=== PATIENT | male | born 1955 | race Caucasian/White ===

== ENCOUNTER 2023-05-06 21:39 | Emergency (ER) | payer OTHER ==
[~2023-05-06] VITALS: Ht 175.3 cm; Wt 77.1 kg
[2023-05-06 21:43] VITALS: BP 177/98; PULSE 93; RESP 18; TEMP 98; O2SAT 98
[2023-05-06] MEDS ORDERED: KETOROLAC 30 MG/ML VIAL IM ONE (22:40)
[2023-05-06] MEDS ORDERED: HYDROcodone/APAP 5/325 MG 1 TAB TAB PO ONE (22:40)
[2023-05-07] MEDS ORDERED: ACET-10509 PO (00:06)
== END 2023-05-07 00:29 | disposition home or self-care (01) ==
LOC: MED 21:39
DX: S43.085A Other dislocation of left shoulder joint, initial encounter (principal); E11.9 Type 2 diabetes mellitus without complications; I10 Essential (primary) hypertension; Z79.899 Other long term (current) drug therapy; W18.39XA Other fall on same level, initial encounter; Y92.89 Other specified places as the place of occurrence of the external cause; Y93.89 Activity, other specified; Y99.8 Other external cause status
CPT/HCPCS: 23650; 73030; 96372; 99284; J1885; Q0092

== ENCOUNTER 2023-05-07 17:38 | Emergency (ER) | payer OTHER ==
[~2023-05-07] VITALS: Ht 167.6 cm; Wt 59.0 kg
[~2023-05-07 17:38] MED LIST: ACET-10509 PO
[2023-05-07 17:57] VITALS: BP 116/66; PULSE 106; RESP 22; TEMP 97; O2SAT 98
[2023-05-07] MEDS ORDERED: MORPHINE SULFATE 4 MG/ML SYR IVP ONE (18:30)
[2023-05-07] MEDS ORDERED: LORazepam 2 MG/ML VIAL IVP ONE (18:30)
[2023-05-07] MEDS ORDERED: ONDANSETRON 4 MG/2 ML VIAL IVP ONE (18:30)
[2023-05-07] MEDS ORDERED: ONDANSETRON 4 MG/2 ML VIAL ONE (19:33)
[2023-05-07] MEDS ORDERED: MORPHINE SULFATE 4 MG/ML SYR ONE (19:34)
[2023-05-07] MEDS ORDERED: LORazepam 2 MG/ML VIAL ONE (19:35)
[2023-05-07 19:57] VITALS: RESP 25
[2023-05-07 20:14] VITALS: O2SAT 100
[2023-05-07] MEDS ORDERED: LIDOCAINE 2% 1000 MG/50 ML VIAL INJ ONE (21:05)
[2023-05-07 21:26] LABS: BASOPHILS # (AUTO) 0.1 K/uL (0.00-0.22); BASOPHILS % (AUTO) 0.2 % (0.0-2.0); HEMATOCRIT 25.7 % (36-52); HEMOGLOBIN 8.8 g/dL (12.0-18.0); LYMPHOCYTES # (AUTO) 0.7 K/uL (2.0-11.5); LYMPHOCYTES % (AUTO) 2.9 % (20.5-51.1); MEAN CORPUSCULAR HEMOGLOBIN 33 pg (27-31); MEAN CORPUSCULAR HGB CONC 34 g/dL (33-37); MEAN CORPUSCULAR VOLUME 95.1 fL (80-94); MONOCYTES # (AUTO) 0.8 K/uL (0.8-1.0); MONOCYTES % (AUTO) 3.3 % (1.7-9.3); NEUTROPHILS # (AUTO) 21.3 K/uL (1.8-7.7); NEUTROPHILS % (AUTO) 93.6 % (42.2-75.2); PLATELET COUNT (AUTO) 443 K/uL (140-450); WHITE BLOOD COUNT (AUTO) 22.8 K/uL (4.8-10.8)
[2023-05-07 21:34] LABS: CALCIUM 8.6 mg/dL (8.5-10.1); CARBON DIOXIDE 22.1 mmol/L (21-32); CREATININE 1.1 mg/dL (0.6-1.3); POTASSIUM 4.1 mmol/L (3.5-5.1)
[2023-05-07 21:47] LABS: ALANINE AMINOTRANSFERASE 30 U/L (12-78); ALBUMIN 2.6 g/dL (3.4-5.0); ALCOHOL, BLOOD < 3 mg/dL (<10); ALKALINE PHOSPHATASE 111 U/L (50-136); ASPARTATE AMINOTRANSFERASE 31 U/L (15-37); BILIRUBIN,DIRECT 0.7 mg/dL (0.0-0.3); TOTAL BILIRUBIN 2.3 mg/dL (0.0-1.0); TOTAL PROTEIN, SERUM 5.6 g/dL (6.4-8.2)
[2023-05-07] MEDS ORDERED: NACL 0.9% 1,000 ML IV ONE (21:55)
[2023-05-07] MEDS ORDERED: BACITRACIN OINT 500 UNITS/GM PKT TP ONE (21:56)
[2023-05-07] MEDS ORDERED: PIPERACILLIN/TAZOBACTAM 3.375 GM in DEXTROSE 5% 50 ML IV ONE (22:00)
[2023-05-07] MEDS ORDERED: VANCOMYCIN 1,000 MG in DEXTROSE 5% 250 ML IV ONE (22:00)
[2023-05-07] MEDS ORDERED: PIPERACILLIN/TAZOBACTAM 3.375 GM VIAL IV ONE (22:03)
[2023-05-07 22:20] VITALS: BP 101/56; PULSE 86; O2SAT 100
== END 2023-05-07 22:20 | disposition short-term general hospital (02) ==
LOC: MED 17:38
DX: S06.5X0A Traumatic subdural hemorrhage without loss of consciousness, initial encounter (principal); S43.015A Anterior dislocation of left humerus, initial encounter; S01.112A Laceration without foreign body of left eyelid and periocular area, initial encounter; S01.21XA Laceration without foreign body of nose, initial encounter; S80.12XA Contusion of left lower leg, initial encounter; E11.9 Type 2 diabetes mellitus without complications; I10 Essential (primary) hypertension; Z79.899 Other long term (current) drug therapy; W01.198A Fall on same level from slipping, tripping and stumbling with subsequent striking against other object, initial encounter; Y92.89 Other specified places as the place of occurrence of the external cause; Y93.89 Activity, other specified; Y99.8 Other external cause status
CPT/HCPCS: 12013; 23650; 36415; 70450; 71045; 73030; 80048; 80076; 82140; 85025; 93005; 96361; 96374; 96375; 99285; G0482; J2001; J2060; J2270; J2405; J2543; J7030